=== PATIENT | female | born 1985 | race Caucasian/White ===

== ENCOUNTER 2017-04-24 22:44 | Emergency (ER) | payer OTHER ==
[2017-04-24] MEDS ORDERED: Lidocaine 1% PF 5 ML VIAL ONE (22:56)
[2017-04-24] MEDS ORDERED: Lidocaine 1% w/Epinephrine 1:100K 20 ML VIAL ONE (23:00)
[2017-04-24] MEDS ORDERED: Bacitracin Zinc 1 Packet ONE (23:39)
== END 2017-04-24 23:46 | disposition home or self-care (01) ==
LOC: SCSER 22:44
DX: S01.81XA Laceration without foreign body of other part of head, initial encounter (principal); S63.601A Unspecified sprain of right thumb, initial encounter; G43.909 Migraine, unspecified, not intractable, without status migrainosus; F41.9 Anxiety disorder, unspecified; V49.50XA Passenger injured in collision with unspecified motor vehicles in traffic accident, initial encounter
CPT/HCPCS: 12011; J2001

== ENCOUNTER 2018-01-19 15:52 | Emergency (ER) | payer MEDICAID, OTHER ==
[2018-01-19 16:31] LABS: #Monocytes 0.7 thou/uL (0.11-0.59); #Neutrophils 3.6 thou/uL (1.40-6.50); %Eosinophils 0.6 % (0.0-10.0); %Monocytes 13.5 % (0.0-10.0); %Neutrophils 67.9 % (42.0-75.0); Hemoglobin 12.3 g/dL (12.0-16.0); Mean Corpuscular HGB CONC 32.7 g/dL (32.0-36.0); Mean Corpuscular Hemoglobin 29.5 pg (27.0-31.0); Mean Corpuscular Volume 90.4 fL (78.0-98.0); Mean Platelet Volume 8.5 fL (7.4-10.4); Platelet Count 179 thou/uL (130-400); RBC Distribution Width 11.3 % (11.5-14.5); Red Blood Cell (RBC) Count 4.18 mill/uL (4.20-5.40); White Blood Cell (WBC) Count 5.3 thou/uL (4.8-10.8)
[2018-01-19 16:34] LABS: Bilirubin Small (Negative); Blood, Urine Negative (Negative); Clarity CLEAR (Clear); Glucose, Urine (Dipstick) Negative (Negative); Leukocyte Negative (Negative); Nitrite Negative (Negative); Protein, Urine (Dipstick) Negative (Neg-Trace); Specific Gravity, Urine 1.037 (1.002-1.036); Urobilinogen 0.2 mg/dL (0.2-1.0); pH, Urine 5.5 (5.0-9.0)
[2018-01-19 16:53] LABS: ALT (SGPT) 7 U/L (8-55); AST (SGOT) 12 U/L (5-34); Albumin 4.4 g/dL (3.5-5.0); Alkaline Phosphatase 74 U/L (40-150); Anion Gap 15 mmol/L (10-20); BUN (Urea Nitrogen) 11 mg/dL (7.0-18.7); Bilirubin, Total 0.5 mg/dL (0.2-1.2); Calc. Creatinine Clearance 0 mL/min (70-130); Calcium 9.5 mg/dL (7.8-10.44); Carbon Dioxide 21 mmol/L (22-29); Chloride 103 mmol/L (98-107); Estimated GFR-MDRD Greater than 90; Globulin 3.6 g/dL (2.4-3.5); Glucose 87 mg/dL (70-105); Lipase 12 U/L (8-78); Potassium 3.6 mmol/L (3.5-5.1); Sodium 135 mmol/L (136-145)
[2018-01-19 16:55] LABS: BHCG - Serum POSITIVE (NEGATIVE); Pregs Control Background? CLEAR/WHITE (CLR/WHITE); Pregs Control Bar Appear? YES (CONTROL BAR)
[2018-01-19] MEDS ORDERED: Ondansetron PF 4 MG/2 ML Vial ONE (18:38)
== END 2018-01-19 20:22 | disposition home or self-care (01) ==
LOC: ERS 15:52
DX: O21.9 Vomiting of pregnancy, unspecified (principal); O99.351 Diseases of the nervous system complicating pregnancy, first trimester; G43.909 Migraine, unspecified, not intractable, without status migrainosus; O99.341 Other mental disorders complicating pregnancy, first trimester; F41.9 Anxiety disorder, unspecified; Z3A.01 Less than 8 weeks gestation of pregnancy
CPT/HCPCS: 80053; 81003; 83690; 84702; 84703; 85025; 96361; 96374; J2405

== ENCOUNTER 2018-06-30 15:54 | Day surgery (SDC) | payer BC, OTHER ==
[2018-06-30 16:43] VITALS: BMI 22.9
--- NOTE | 2018-06-30 18:33 | HP ---
PRIMARY OB: Dr. Marx. CHIEF COMPLAINT: Vaginal bleeding. HISTORY OF PRESENT ILLNESS: The patient is a 32-year-old G4, P3, female with an intrauterine at 29 weeks and 5 days, who is presenting to Labor and Delivery today after speaking with her PUMP STATION OPERATOR for concerns of vaginal bleeding that occurred on 2 separate occasions. The patient reports that she has had bleeding on the toilet paper when wiping after going to the bathroom twice today. The patient denies any bleeding on the pad or on her panties. She does report intercourse last night. She reports that she was recently seen by Dr. Marx, where she was evaluated for urinary tract infection and vaginal infection, was noted to have a yeast infection, and is on Diflucan. The patient denies any recent illness, fever, fall, headache, chest pain, or shortness of breath. The patient does have some nausea and rare episodes of vomiting associated with . She denies any diarrhea or constipation. She denies any skin rashes, hip problems, knee problems, or muscle weakness. She denies any change in her discharge other than this bleeding from her HPI. She denies any urinary urgency or frequency. The patient denies uterine contractions or back pains. PAST MEDICAL HISTORY: Negative. PAST SURGICAL HISTORY: She has had surgery on her wrist, on her breast and has had her gallbladder removed. ALLERGIES: MORPHINE. MEDICATIONS: vitamins. SOCIAL HISTORY: Denies drug, alcohol, or tobacco use. OB LABS: Unavailable at time of dictation. REVIEW OF SYSTEMS: Per HPI. PHYSICAL EXAMINATION: VITAL SIGNS: Blood pressure is 102/64, heart rate of 94, saturating 100% on room air, temperature 98.2, and respiratory rate 18. GENERAL: She appears to be in no acute distress. She is alert, oriented, cooperative, and pleasant to interact with. HEAD: Normocephalic and atraumatic. LUNGS: Clear to auscultation bilaterally. HEART: Regular rate and rhythm. ABDOMEN: Gravid, soft, nontender to palpation. EXTREMITIES: Nontender, nonedematous. GENITOURINARY: Vulva is without masses, lesions, or erythema. Vestibular region and periurethral region are without lacerations, erythema, or other lesions. On vaginal exam, the patient does have some white discharge present, otherwise appears normal. There is no bleeding or change in her discharge color. Cervix is visibly closed. On digital exam, cervix is long and is fingertip. heart tracing for vaginal bleeding was performed, baseline is noted to be in the 130s with moderate long-term variability, positive 15 x 15 accelerations, no decelerations. The tocometer is not showing any contractions. ASSESSMENT AND PLAN: The patient is a 32-year-old G4, P3, female with an intrauterine at 29 weeks and 5 days, presents for vaginal spotting after having intercourse. There is no evidence of bleeding at the time of exam. No evidence of any concern at this time. The patient recently was evaluated for vaginal infection and urinary tract infection and has taken Diflucan for recently diagnosed yeast infection. The patient has been given reassurance. Fetus has reactive NST and category 1 tracing. She has been discharged home with labor precautions and instructions to contact her primary OB should her bleeding persist more than just some spotting for the next day or so. The patient has a followup appointment with her OB in approximately 1 week, which she has been encouraged to keep. Job ID: [id number]
== END 2018-06-30 17:47 | disposition home or self-care (01) ==
LOC: L&D/OP 15:54
PROVIDERS: ATTEND Obstetrics & Gynecology
DX: O99.89 Other specified diseases and conditions complicating pregnancy, childbirth and the puerperium (principal); N89.8 Other specified noninflammatory disorders of vagina; O98.819 Other maternal infectious and parasitic diseases complicating pregnancy, unspecified trimester; B37.9 Candidiasis, unspecified; Z3A.29 29 weeks gestation of pregnancy; Z88.5 Allergy status to narcotic agent
CPT/HCPCS: 59025; 99283

== ENCOUNTER 2018-07-19 08:24 | Day surgery (SDC) | payer BC, OTHER ==
[2018-07-19 09:06] VITALS: BMI 24.1
[2018-07-19] MEDS ORDERED: Ondansetron PF 4 MG/2 ML Vial IVP PRN (09:50)
[2018-07-19] MEDS ORDERED: Lactated Ringer's 1,000 ML IV SCH ×2 (10:00)
[2018-07-19 10:06] LABS: #Eosinphils 0.1 thou/uL (0.0-0.7); #Lymphocytes 2.1 thou/uL (1.20-3.40); #Monocytes 0.9 thou/uL (0.11-0.59); #Neutrophils 10.3 thou/uL (1.40-6.50); %Basophils 0.3 % (0.0-1.0); %Eosinophils 0.6 % (0.0-10.0); %Lymphocytes 15.4 % (21.0-51.0); %Monocytes 6.5 % (0.0-10.0); %Neutrophils 77.3 % (42.0-75.0); Hemoglobin 9.1 g/dL (12.0-16.0); Mean Corpuscular HGB CONC 33.6 g/dL (32.0-36.0); Mean Corpuscular Hemoglobin 30.7 pg (27.0-31.0); Mean Corpuscular Volume 91.4 fL (78.0-98.0); Platelet Count 185 thou/uL (130-400); RBC Distribution Width 11.4 % (11.5-14.5); Red Blood Cell (RBC) Count 2.95 mill/uL (4.20-5.40); White Blood Cell (WBC) Count 13.4 thou/uL (4.8-10.8)
[2018-07-19 10:27] LABS: ALT (SGPT) 13 U/L (8-55); AST (SGOT) 16 U/L (5-34); Albumin 3.2 g/dL (3.5-5.0); Alkaline Phosphatase 141 U/L (40-150); Anion Gap 11 mmol/L (10-20); BUN (Urea Nitrogen) 6 mg/dL (7.0-18.7); Bilirubin, Total 0.4 mg/dL (0.2-1.2); Calc. Creatinine Clearance 133 mL/min (70-130); Calcium 8.9 mg/dL (7.8-10.44); Carbon Dioxide 23 mmol/L (22-29); Chloride 106 mmol/L (98-107); Estimated GFR-MDRD Greater than 90; Globulin 2.9 g/dL (2.4-3.5); Glucose 104 mg/dL (70-105); Potassium 3.6 mmol/L (3.5-5.1); Protein, Total 6.1 g/dL (6.0-8.3); Sodium 136 mmol/L (136-145)
[2018-07-19 10:36] LABS: Bilirubin Small (Negative); Blood, Urine Negative (Negative); Clarity CLOUDY (Clear); Glucose, Urine (Dipstick) Negative (Negative); Leukocyte Negative (Negative); Nitrite Negative (Negative); Protein, Urine (Dipstick) Trace mg/dL (Neg-Trace); Specific Gravity, Urine 1.031 (1.002-1.036)
--- NOTE | 2018-07-20 02:43 | SS ---
DATE OF ADMISSION: 07/19/2018 DATE OF DISCHARGE: 07/19/2018 REGULAR PHYSICIAN: Taylor Marx DO. EVALUATING PHYSICIAN: Rishi Karimi MD CHIEF COMPLAINT: Nausea and vomiting at home since last p.m. HISTORY OF PRESENT ILLNESS: Ms. Nieto is a 32-year-old white G4, P3, with an estimated date of confinement of 09/10/2018, who presents complaining of nausea and vomiting with multiple episodes of emesis since 9:00 pm last night. She states that she has not been able to tolerate anything by mouth since 7:00 pm yesterday. She denies vaginal bleeding, ruptured membranes, or contractions. Her care has been with Dr. Marx without complications. PAST OBSTETRICAL HISTORY: Three vaginal deliveries, one of which was at 36 weeks. PAST MEDICAL HISTORY: None. PAST SURGICAL HISTORY: Surgery to her hand, cholecystectomy, and breast augmentation. CURRENT MEDICATIONS: vitamins and weekly Gananda. SOCIAL HISTORY: She denies tobacco, alcohol, or drug use. FAMILY HISTORY: Unremarkable. REVIEW OF SYSTEMS: Positive for nausea and vomiting. Denies ruptured membranes, vaginal bleeding, fever, or chills. PHYSICAL EXAMINATION: VITAL SIGNS: In triage, blood pressure 100/64, pulse is 94. She is afebrile and she is 99% saturated on room air. GENERAL: She is pleasant and not significantly ill appearing. ABDOMEN: Soft, nontender, and gravid. PELVIC: Deferred. heart rate tracing is stable with no decelerations. No uterine contractions are seen. LABORATORY DATA: White count 13.4, hemoglobin and hematocrit 9.1/27.0, platelet count 185,000. Chemistry; sodium 136, potassium 3.6, BUN 6, creatinine 0.64. Total bilirubin is 0.4, AST 16, ALT 13, alkaline phosphatase is 141. Urine shows a specific gravity of 1.031 with trace protein, trace ketones, and small bilirubin, negative for leukocyte esterase. The patient is given 1 L of IV fluid and feels much better. ASSESSMENT: 1. 32-week intrauterine . 2. Nausea, vomiting, ketonuria, improved after IV fluid in triage. 3. No evidence of labor. PLAN: The patient will be dismissed to home. She was told to keep herself well hydrated with Gatorade over the next 12-24 hours and then slowly advance her diet to a BRAT diet. She was also given a prescription for Zofran 4 mg one p.o. q.6 hours, #15. She voiced understanding of her discharge instructions and was sent home in good condition. Dr. Marx has been notified. Job ID: [id number]
== END 2018-07-19 12:01 | disposition home or self-care (01) ==
LOC: L&D/OP 08:24
PROVIDERS: ATTEND Obstetrics & Gynecology
DX: O21.2 Late vomiting of pregnancy (principal); Z3A.32 32 weeks gestation of pregnancy; Z79.899 Other long term (current) drug therapy; Z88.5 Allergy status to narcotic agent; Z91.013 Allergy to seafood; Z91.018 Allergy to other foods
CPT/HCPCS: 36415; 80053; 81003; 85025; 96360; 96361; 96375; 99283; J2405

== ENCOUNTER 2018-08-07 08:01 | Day surgery (SDC) | payer BC, OTHER ==
[2018-08-07 08:53] VITALS: BMI 23.4
[2018-08-07 09:36] LABS: Bilirubin Negative (Negative); Blood, Urine Negative (Negative); Clarity CLEAR (Clear); Glucose, Urine (Dipstick) Negative (Negative); Leukocyte Negative (Negative); Nitrite Negative (Negative); Protein, Urine (Dipstick) Negative (Neg-Trace)
--- NOTE | 2018-08-07 23:50 | SS ---
DATE OF ADMISSION: 08/07/2018 DATE OF DISCHARGE: 08/07/2018 REGULAR PHYSICIAN: Taylor Marx DO. EVALUATING PHYSICIAN: Rishi Karimi MD CHIEF COMPLAINT: Lower abdominal discomfort since midnight. HISTORY OF PRESENT ILLNESS: Ms. Nieto is a 32-year-old white G4, P3-0-0-3 with an estimated date of confinement of 09/10/2018, who presents complaining of lower abdominal discomfort with pressure since midnight last night. She denies ruptured membranes or vaginal bleeding. She states she has been neto irregularly. Her care has been with Dr. Marx and has been without significant complications. She states she took her last Marcelline shot 2 weeks ago. PAST OBSTETRICAL HISTORY: One vaginal delivery at 36 weeks, which was her last and she had had 2 previous term deliveries. PAST MEDICAL HISTORY: None. PAST SURGICAL HISTORY: Surgery to her wrist, removal of wisdom teeth, breast augmentation, and cholecystectomy. CURRENT MEDICATIONS: vitamins. ALLERGIES: MORPHINE, SHELLFISH, MUSHROOMS. SOCIAL HISTORY: Unremarkable. FAMILY HISTORY: Unremarkable. REVIEW OF SYSTEMS: She denies nausea, vomiting, fever, chills, ruptured membranes, or vaginal bleeding. PHYSICAL EXAMINATION: VITAL SIGNS: Stable in triage. She is afebrile. GENERAL: She is in no acute distress. ABDOMEN: Soft, nontender, and gravid. There is no guarding or rebound. PELVIC: Examination by Labor nurse shows the cervix to be 1 cm dilated, 50% effaced, posterior with the vertex presenting. heart rate tracing is stable with spontaneous accelerations. Only an occasional uterine contraction is seen. LABORATORY STUDIES: Urinalysis returned showing a specific gravity of 1.018 with trace ketones, negative for leukocyte esterase or nitrites. ASSESSMENT: 1. 35-week intrauterine . 2. No evidence of labor. PLAN: The patient will be dismissed to home. The patient was told to increase her hydration at home and eat small frequent meals. Labor precautions were reviewed with her in detail. Dr. Marx was notified. Job ID: [id number]
== END 2018-08-07 10:21 | disposition home health service (06) ==
LOC: L&D/OP 08:01
PROVIDERS: ATTEND Obstetrics & Gynecology
DX: O47.03 False labor before 37 completed weeks of gestation, third trimester (principal); Z90.49 Acquired absence of other specified parts of digestive tract; Z98.890 Other specified postprocedural states; Z88.5 Allergy status to narcotic agent; Z91.013 Allergy to seafood; Z91.018 Allergy to other foods; Z3A.35 35 weeks gestation of pregnancy
CPT/HCPCS: 81003; 99282

== ENCOUNTER 2018-08-15 12:27 | Day surgery (SDC) | payer BC, OTHER ==
[2018-08-15 13:28] VITALS: BP 113/67; TEMP 98.5; BMI 23.9
[2018-08-15] MEDS ORDERED: Betamet Acet/Betamet Na Ph 30 MG/5 ML VIAL IM SCH (16:00)
[2018-08-15] MEDS ORDERED: Lactated Ringer's 1,000 ML IV SCH (16:45)
--- NOTE | 2018-08-15 17:16 | PDOC.LDPN ---
Labor & Delivery Progress Note - Subjective Subjective: other (Pt presents with c/o ctx every 5-10 min. Denies LOF/VB. Good FM. No other concerns. Reports moderate discomfort with ctx. ) - Objective Vital signs reviewed and normal: yes General: NAD Uterine fundus: non tender Dilation: 3 Effacement: 75% Station: -1 FHT: category 1 [place] contractions every: q5-10+ min, irregular - Assessment (1) 36 weeks gestation of Code(s): Z3A.36 - 36 WEEKS GESTATION OF Status: Acute (2) contractions Code(s): O47.9 - FALSE LABOR, UNSPECIFIED Status: Acute -: SVE unchanged after observation and IVF bolus. Due to no cervical change recommended d/c home with completion of BMTZ course as outpatient. Recommended pelvic rest. Scheduled tomorrow for BMTZ. PTL warnings reviewed.
== END 2018-08-15 16:35 | disposition home or self-care (01) ==
LOC: L&D/OP 12:27
PROVIDERS: ATTEND Obstetrics & Gynecology
DX: O47.03 False labor before 37 completed weeks of gestation, third trimester (principal); Z3A.36 36 weeks gestation of pregnancy; Z88.5 Allergy status to narcotic agent; Z91.018 Allergy to other foods; Z91.013 Allergy to seafood
CPT/HCPCS: 96360; 96372; 99283; J0702

== ENCOUNTER 2018-08-16 05:07 | Inpatient (IN) | payer BC, OTHER ==
[2018-08-16 05:38] VITALS: BMI 23.9
--- NOTE | 2018-08-16 05:50 | PDOC.LDHP ---
Labor and Delivery H&P HPI: Patient of Dr Mendosa Here yesterday and evaluared by Dr Marx, given Celestone yesterday with second injection this pm at 1700 HPI: 30 uo at 36 weeks with 3cm dilation as of yesterday, with persistent CTX every 5 min. No LOF, no VB, good FM. Review of Systems: complete ROS completed and as per HPI Current gestational age (weeks): 36 Dating criteria: last menstrual period Grav: 4 Para: 3 OB History Details: All Current complications: none Abnormal US findings: No Past Medical History: HX migraines Current medications: pre- vitamins Previous surgical history: cholecystectomy, other (breast augmentation) Allergies/Adverse Reactions: Allergies Allergy/AdvReac Type Severity Reaction Status Date / Time mushroom Allergy Severe Anaphylaxis Verified 08/15/18 13:29 morphine Allergy Intermediate Headache Verified 08/15/18 13:29 shellfish derived Allergy Intermediate Hives Verified 08/15/18 13:29 - Physical Exam Vital signs reviewed and normal: yes General: NAD Heart: RRR Lungs: CTAB Abdomen: gravid Extremeties: no edema FHT: category 1 [place] contractions every: irregular, Q5 or so - Vaginal Exam cm dilated: 3 Effacement: 50% Station: -1 - Assessment Threatened PTL at 36 weeks, recieved BMZ yesterday x 1 (has another this PM) - Plan Plan: observation in L&D (No CX change as of yet...still 3cm. We will obs for 2 hrs)
[2018-08-16] MEDS ORDERED: Butorphanol Tartrate 1 MG/ML VIAL IM PRN (05:53)
[2018-08-16] MEDS ORDERED: hydrALAZINE 20 MG/ML VIAL SLOW IVP PRN ×2 (05:53→07:45)
[2018-08-16] MEDS ORDERED: Promethazine HCl 25 MG/ML VIAL IM/IV PRN (05:54)
--- NOTE | 2018-08-16 07:44 | PDOC.EVN ---
Event Note - Event Note Event Note: CX now 4cm...reg CTX...will admit. GBS negatve. Notified Dr singh
[2018-08-16] MEDS ORDERED: Promethazine HCl 25 MG/ML VIAL IM PRN (07:45)
[2018-08-16] MEDS ORDERED: HYDROcodone/Acetaminophen 5/325 mg Tablet PO PRN ×2 (07:45)
[2018-08-16] MEDS ORDERED: Lidocaine 1% (PF) 30 ML VIAL SC PRN (07:45)
[2018-08-16] MEDS ORDERED: Ibuprofen 800 MG TAB PO PRN (07:45)
[2018-08-16] MEDS ORDERED: Ondansetron PF 4 MG/2 ML Vial IVP PRN (07:45)
[2018-08-16] MEDS: Lactated Ringer's 1,000 ML IV SCH ×2 (08:20→12:24)
[2018-08-16 09:07] LABS: Syphilis Antibody Nonreactive (Nonreactive); Syphilis Antibody Index 0.07 S/CO (<1.00 Non-Reactive)
[2018-08-16 09:08] LABS: HBSAg Index 0.25 S/CO (0-0.99); HIV (1/2) Antibody/Antigen Non-Reactive (NonReactive); HIV 1/2 INDEX 0.11 S/CO (<1.00); Hep B Surf Ag Non-Reactive S/CO (NonReactive)
[2018-08-16 09:21] LABS: Hemoglobin 10.1 g/dL (12.0-16.0); Mean Corpuscular HGB CONC 32.2 g/dL (32.0-36.0); Mean Corpuscular Hemoglobin 28.7 pg (27.0-31.0); Mean Corpuscular Volume 89.3 fL (78.0-98.0); Mean Platelet Volume 9.8 fL (7.4-10.4); Platelet Count 247 thou/uL (130-400); Red Blood Cell (RBC) Count 3.53 mill/uL (4.20-5.40); White Blood Cell (WBC) Count 27.3 thou/uL (4.8-10.8)
[2018-08-16] MEDS ORDERED: Butorphanol Tartrate 1 MG/ML VIAL SLOW IVP PRN (09:31)
[2018-08-16] MEDS: Betamet Acet/Betamet Na Ph 30 MG/5 ML VIAL IM SCH (16:58)
--- NOTE | 2018-08-17 08:27 | PDOC.LDPN ---
Labor & Delivery Progress Note - Subjective Subjective: other (Feels some ctx, no pain btw ctx. No f/c, VB or other concerns. + FM. ) - Objective Vital signs reviewed and normal: yes General: NAD Uterine fundus: non tender SVE: 4 Effacement: 75% Station: -2 FHT: category 2 (140s, mod vivian, +accels, 2 late decels noted this AM after ctx with resolution. ) [employer] contractions every: irregular Resuscitative measures: maternal IV fluids, maternal position change - Assessment (1) 36 weeks gestation of Code(s): Z3A.36 - 36 WEEKS GESTATION OF Current Visit: No Status: Acute (2) contractions Code(s): O47.9 - FALSE LABOR, UNSPECIFIED Current Visit: No Status: Acute -: Reviewed FHTs with pt. BPP ordered. Pt denies any sx of chorio, CBC repeated this AM due to leukocytosis noted yesterday. Continue EFW. Determine remainder of plan pending evaluations listed above. S/P BMTZ.
[2018-08-17 09:26] LABS: Hemoglobin 8.3 g/dL (12.0-16.0); Mean Corpuscular HGB CONC 31.8 g/dL (32.0-36.0); Mean Corpuscular Hemoglobin 28.2 pg (27.0-31.0); Mean Corpuscular Volume 88.7 fL (78.0-98.0); Mean Platelet Volume 9.7 fL (7.4-10.4); Platelet Count 228 thou/uL (130-400); RBC Distribution Width 11.9 % (11.5-14.5); Red Blood Cell (RBC) Count 2.93 mill/uL (4.20-5.40); White Blood Cell (WBC) Count 23.9 thou/uL (4.8-10.8)
[2018-08-17] MEDS: Lactated Ringer's 1,000 ML IV SCH ×3 (10:23→15:58)
[2018-08-17 10:28] LABS: Band 5 % (5-11); Lymphocytes 11 % (21-51); MDiff Complete? YES; Metamyelocyte 1 % (0-0); Monocytes 7 % (0-10); Neutrophil 76 % (42-75); Platelet Morphology Comment Appears Adequate; Polychromasia SLIGHT = 2-3 cells (100X) (0-2/hpf)
--- NOTE | 2018-08-17 11:26 | ULT ---
ULTRASOUND BIOPHYSICAL PROFILE: DATE: 08/17/18 HISTORY: 32-year-old female in third trimester of with decelerations. FINDINGS: breathin tone: 2 movement: 2 Amniotic fluid volume: 2 From heart rate of 135 bpm, there is deceleration during uterine contraction to a rate of 116 b pm. It recovers after the contraction back to 135 bpm. BLAKE: 5.5 cm. Maternal cervix: 3.5 cm in length and closed. Placenta: Fundal and left lateral. No placenta previa. lie: Vertex. Bladder, diaphragm, bilateral kidneys, 3 vessel cord, and stomach visualized. The rest of the anatomy is not well visualized. IMPRESSION: 1. Biophysical profile score of 6/8 (no breathing motion), excluding the non-stress test. 2. deceleration during maternal uterine contraction. 3. Oligohydramnios. APOLONIA [place] POS: [facility]
--- NOTE | 2018-08-17 12:44 | PDOC.LDPN ---
Labor & Delivery Progress Note - Subjective Subjective: other (Feels some ctx. Still no LOF. + FM. ) - Objective Vital signs reviewed and normal: yes General: NAD Uterine fundus: non tender Dilation: 4 Effacement: 75% Station: -2 FHT: category 2 (140s, mod vivian, +accels, occasional prolonged and late decel ) AROM: clear fluid IUPC placed: yes FSE placed: yes Resuscitative measures: maternal oxygen, maternal IV fluids, maternal position change - Assessment (1) 36 weeks gestation of Code(s): Z3A.36 - 36 WEEKS GESTATION OF Current Visit: No Status: Acute (2) contractions Code(s): O47.9 - FALSE LABOR, UNSPECIFIED Current Visit: No Status: Acute (3) Oligohydramnios Code(s): O41.00X0 - OLIGOHYDRAMNIOS, UNSP TRIMESTER, NOT APPLICABLE OR UNSP Current Visit: Yes Status: Acute -: Reviewed BPP with pt. Due to BLAKE and BPP 6/10, recommended delivery. AROM with internals placed. May require pitocin if ctx do not increase with AROM. s/p BMTZ course.
[2018-08-17] MEDS ORDERED: Fentanyl 4 mcg/Bup 0.1% Cadd 100 ML ONE (13:38)
[2018-08-17] MEDS ORDERED: Naloxone HCl 0.4 mg/ml Vial IVP PRN ×2 (14:13)
[2018-08-17] MEDS ORDERED: Promethazine HCl 25 MG/ML VIAL IM PRN (14:13)
[2018-08-17] MEDS ORDERED: diphenhydrAMINE 50 MG/ML VIAL IVP PRN (14:13)
[2018-08-17] MEDS ORDERED: Acetaminophen 325 MG TAB PO PRN (14:13)
[2018-08-17] MEDS ORDERED: Lactated Ringer's 500 ML IV PRN (14:13)
[2018-08-17] MEDS ORDERED: Ondansetron PF 4 MG/2 ML Vial IVP PRN (14:13)
[2018-08-17] MEDS ORDERED: ePHEDrine/0.9% NaCl/PF SYRINGE 50 mg/10 ml SLOW IVP PRN (14:13)
[2018-08-17] MEDS ORDERED: Fentanyl 4 mcg/Bupivacaine 0.1% Cassette 100 ML EPIDURAL SCH (14:15)
[2018-08-17] MEDS ORDERED: Communication Order-Pharmacy FS SCH (14:15)
[2018-08-17] MEDS ORDERED: NS w/ Oxytocin 10 units 500 ML IV SCH (14:45)
[2018-08-17] MEDS: NS / Oxytocin 40 units/1000ml 1,000 ML IV PRN ×2 (17:00→18:40)
--- NOTE | 2018-08-17 17:32 | PDOC.OPDEL ---
OB Operative/Delivery Note Delivery Dr/Surgeon: Taylor Marx DO Pre-Delivery Diagnosis: medically indicated induction Procedure/Post Delivery Dx: spontaneous vaginal delivery Weeks gestation: 36 Anesthesia: epidural - Findings A Sex: male - 1 min: 9 - 5 min: 9 - Additional Findings/Plan Placenta delivered: spontaneous Repaired Obstetrical Laceration: none Estimated blood loss: QBL 40 cc Compilations/Other Findings: in cephalic presentation Normal appearing placenta Post delivery plan: routine recovery
[2018-08-17] MEDS ORDERED: NS / Oxytocin 40 units/1000ml 1,000 ML IV SCH (21:16)
[2018-08-17] MEDS ORDERED: Preparation H Ointment 28 GM TUBE PR PRN (21:16)
[2018-08-17] MEDS ORDERED: Benzocaine-Menthol 82.5 ML CAN TOP PRN (21:16)
[2018-08-17] MEDS ORDERED: Methylergonovine 0.2 MG/ML VIAL IM PRN (21:16)
[2018-08-17] MEDS ORDERED: Milk Of Magnesia 30 ML UDCUP PO PRN (21:16)
[2018-08-17] MEDS ORDERED: diphenhydrAMINE 25 MG CAP PO PRN (21:16)
[2018-08-17] MEDS ORDERED: Bisacodyl 10 MG SUPP PR PRN (21:16)
[2018-08-17] MEDS ORDERED: hydrALAZINE 20 MG/ML VIAL SLOW IVP PRN (21:16)
[2018-08-17] MEDS ORDERED: Misoprostol 200 MCG TAB VAG PRN (21:16)
[2018-08-17] MEDS: Ibuprofen 800 MG TAB PO SCH (21:31)
[2018-08-18] MEDS: Betamet Acet/Betamet Na Ph 30 MG/5 ML VIAL IM SCH (01:38)
[2018-08-18] MEDS: HYDROcodone/Acetaminophen 5/325 mg Tablet PO PRN (02:06)
[2018-08-18] MEDS: Ibuprofen 800 MG TAB PO SCH ×3 (05:59→21:42)
[2018-08-18 06:35] LABS: Hemoglobin 7.8 g/dL (12.0-16.0)
--- NOTE | 2018-08-18 08:33 | PDOC.PP ---
Post Progress Note Post Day #: 1 Subjective: No concerns. Breast and formula feeding. Minimal pain and lochia. PO intake tolerated: yes Flatus: yes Ambulation: yes Vital Signs (12 hours) Temp Pulse Resp BP Pulse Ox 08/18/18 08:07 98.6 F 79 20 108/70 97 08/18/18 04:39 98.6 F 84 20 100/55 L 08/17/18 23:53 97.9 F 85 20 115/67 08/17/18 21:16 93 20 108/70 Weight Weight 144 lb - Physical Examination General: NAD Cardiovascular: RRR Respiratory: non-labored breathing Abdominal: no distention, appropriately TTP Fundus firm & at: below umbilicus Extremities: negative homans (B) Neurological: no gross focal deficits Psychiatric: A&Ox3, normal affect Result Diagrams: 08/18/18 06:23 Additional Labs: Post Labs Blood Type O POSITIVE 08/16/18 08:13 Hep Bs Antigen Non-Reactive S/CO (NonReactive) 08/16/18 08:13 (1) 36 weeks gestation of Code(s): Z3A.36 - 36 WEEKS GESTATION OF Status: Resolved (2) contractions Code(s): O47.9 - FALSE LABOR, UNSPECIFIED Status: Resolved (3) Oligohydramnios Code(s): O41.00X0 - OLIGOHYDRAMNIOS, UNSP TRIMESTER, NOT APPLICABLE OR UNSP Status: Resolved (4) Vaginal delivery Code(s): O80 - ENCOUNTER FOR FULL-TERM UNCOMPLICATED DELIVERY Status: Acute (5) Anemia Code(s): D64.9 - ANEMIA, UNSPECIFIED Status: Acute - Assessment/Plan PPD1 VSSAF Continue PP care Iron supplement. Plan for d/c tomorrow due to infant 36 weeks
[2018-08-18] MEDS: Ferrous Sulfate 325 MG TAB PO SCH ×2 (09:05→18:10)
[2018-08-18] MEDS: Docusate Calcium (SURFAK) 240 MG CAP PO SCH ×2 (09:06→21:42)
[2018-08-18] MEDS: Prenatal Vitamin 1 TAB PO SCH (09:06)
[2018-08-18] MEDS ORDERED: Bupivacaine 0.25% HCL 30 ML VIAL ONE (11:11)
[2018-08-19] MEDS: HYDROcodone/Acetaminophen 5/325 mg Tablet PO PRN (02:32)
[2018-08-19] MEDS: Ibuprofen 800 MG TAB PO SCH ×2 (06:52→13:58)
[2018-08-19 08:20] VITALS: BP 103/65; TEMP 98.6
--- NOTE | 2018-08-19 08:31 | PDOC.PP ---
Post Progress Note Post Day #: 2 Subjective: Minimal pelvic pain and lochia. Voiding. Pt c/o bilateral back spasms that started last night. Denies any dysuria or other concerns. PO intake tolerated: yes Flatus: yes Ambulation: yes Vital Signs (12 hours) Temp Pulse Resp BP Pulse Ox 08/19/18 08:00 98.6 F 61 13 103/65 95 Weight Weight 144 lb - Physical Examination General: NAD Cardiovascular: RRR Respiratory: non-labored breathing Deviation from normal: Infant resting on abdomen, did not perform exam. Pt MA- reports uterus low Extremities: negative homans (B) Neurological: no gross focal deficits Psychiatric: A&Ox3, normal affect Result Diagrams: 08/18/18 06:23 Additional Labs: Post Labs Blood Type O POSITIVE 08/16/18 08:13 Hep Bs Antigen Non-Reactive S/CO (NonReactive) 08/16/18 08:13 (1) Oligohydramnios Code(s): O41.00X0 - OLIGOHYDRAMNIOS, UNSP TRIMESTER, NOT APPLICABLE OR UNSP Status: Resolved (2) Vaginal delivery Code(s): O80 - ENCOUNTER FOR FULL-TERM UNCOMPLICATED DELIVERY Status: Acute (3) Anemia Code(s): D64.9 - ANEMIA, UNSPECIFIED Status: Acute - Assessment/Plan PPD2 VSSAF Heating pad for back spasm. Plan for d/c home today with .
[2018-08-19] MEDS: Ferrous Sulfate 325 MG TAB PO SCH ×2 (09:14→17:29)
[2018-08-19] MEDS: Prenatal Vitamin 1 TAB PO SCH (09:14)
[2018-08-19] MEDS: Docusate Calcium (SURFAK) 240 MG CAP PO SCH (09:14)
== END 2018-08-19 19:25 | disposition home or self-care (01) | DRG 806 ==
LOC: L&D/OP 05:07 → L&D 08:25 → 3SW 08-17 19:27
PROVIDERS: ADMIT Obstetrics & Gynecology; ATTEND Obstetrics & Gynecology
PROC: 10E0XZZ Delivery of Products of Conception, External Approach (ICD-10-PCS; principal; 2018-08-17)
DX: O60.14X0 Preterm labor third trimester with preterm delivery third trimester, not applicable or unspecified (principal); O41.03X0 Oligohydramnios, third trimester, not applicable or unspecified; Z37.0 Single live birth; Z3A.36 36 weeks gestation of pregnancy; O76 Abnormality in fetal heart rate and rhythm complicating labor and delivery; O99.02 Anemia complicating childbirth; D64.9 Anemia, unspecified
CPT/HCPCS: 36415; 51702; 76819; 85014; 85018; 85025; 85027; 86780; 86850; 86900; 86901; 87340; 87389; 99285; J0595; J2590; S0020

== ENCOUNTER 2021-08-03 08:10 | Emergency (ER) | payer BC, OTHER ==
[2021-08-03] MEDS ORDERED: Acetaminophen 500 MG TAB ONE (09:24)
== END 2021-08-03 10:14 | disposition home or self-care (01) ==
LOC: ERS 08:10
DX: O98.513 Other viral diseases complicating pregnancy, third trimester (principal); U07.1 COVID-19; Z3A.33 33 weeks gestation of pregnancy
CPT/HCPCS: 87804; 99283; U0003; U0005

== ENCOUNTER 2021-12-30 09:25 | Emergency (ER) | payer BC, OTHER ==
[2021-12-30] MEDS ORDERED: Ondansetron ODT 4 MG TAB ONE (10:54)
[2021-12-30] MEDS ORDERED: Ibuprofen 200 MG TAB ONE (10:54)
== END 2021-12-30 12:13 | disposition home or self-care (01) ==
LOC: ERS 09:25
DX: B34.9 Viral infection, unspecified (principal)
CPT/HCPCS: 87804; 99284; Q0162

== ENCOUNTER 2022-09-15 14:57 | Outpatient (CLI) | payer BC, OTHER | END 2022-09-15 14:58 | disposition home or self-care (01) | LOC: ULT 14:57 | PROVIDERS: ATTEND Family Medicine | DX: R79.89 Other specified abnormal findings of blood chemistry (principal); R93.89 Abnormal findings on diagnostic imaging of other specified body structures | CPT/HCPCS: 76536 ==

== ENCOUNTER 2023-02-19 10:27 | Outpatient (CLI) | payer BC | END 2023-02-19 10:28 | disposition home or self-care (01) | LOC: BICULT 10:27 | PROVIDERS: ATTEND Family Medicine | DX: R93.89 Abnormal findings on diagnostic imaging of other specified body structures (principal) | CPT/HCPCS: 76536 ==

== ENCOUNTER 2023-09-28 22:47 | Day surgery (SDC) | payer BC ==
[2023-09-29 01:44] LABS: #Basophils Less than 0.03 10x3/uL (0.0-0.2); #Eosinphils Less than 0.03 10x3/uL (0.0-0.7); %Basophils 0.2 % (0.0-1.0); %Monocytes 6.8 % (0.0-10.0); %Neutrophils 79.8 % (42.0-75.0); Hematocrit 28.7 % (36.0-47.0); Hemoglobin 9.5 g/dL (12.0-16.0); Mean Corpuscular HGB CONC 33.1 g/dL (32.0-36.0); Mean Corpuscular Hemoglobin 30.8 pg (27.0-31.0); Mean Corpuscular Volume 93.2 fL (78.0-98.0); Mean Platelet Volume 11.3 fL (7.4-10.4); Platelet Count 181 10x3/uL (130-400); RBC Distribution Width 12.6 % (11.5-14.5); Red Blood Cell (RBC) Count 3.08 mill/uL (4.20-5.40)
[2023-09-29] MEDS ORDERED: Ondansetron PF 4 MG/2 ML Vial ONE ×2 (02:01→05:15)
[2023-09-29] MEDS ORDERED: fentaNYL 50 mcg/mL 1 mL Vial ONE ×2 (02:02→03:57)
[2023-09-29 02:11] LABS: Anion Gap 11 mmol/L (10-20); BUN (Urea Nitrogen) 9 mg/dL (7.0-18.7); Calc. Creatinine Clearance 0 mL/min (70-130); Carbon Dioxide 23 mmol/L (22-29); Chloride 109 mmol/L (98-107); Potassium 4.1 mmol/L (3.5-5.1); Sodium 139 mmol/L (136-145)
[2023-09-29 02:12] LABS: ALT (SGPT) 19 U/L (8-55); AST (SGOT) 17 U/L (5-34); Albumin 3.5 g/dL (3.5-5.0); Alkaline Phosphatase 55 U/L (40-110); Bilirubin, Total 0.8 mg/dL (0.2-1.2); Calcium 8.5 mg/dL (7.8-10.44); Estimated GFR 111; Globulin 3.1 g/dL (2.4-3.5); Glucose 131 mg/dL (70-105); Protein, Total 6.6 g/dL (6.0-8.3)
[2023-09-29 02:16] LABS: Troponin I Less than 0.010 ng/mL (< 0.028)
[2023-09-29] MEDS ORDERED: PROPOFOL 20 ML ONE (05:08)
[2023-09-29] MEDS ORDERED: Midazolam HCl 2 mg/2 ml Vial ONE (05:08)
[2023-09-29] MEDS ORDERED: Rocuronium Bromide 10 MG/ML (10ML VIAL) ONE ×2 (05:08→05:15)
[2023-09-29] MEDS ORDERED: Fentanyl 250 MCG/5 ML VIAL ONE (05:08)
[2023-09-29] MEDS ORDERED: EPINEPHrine 1 MG/ML VIAL ONE (05:11)
[2023-09-29] MEDS ORDERED: Bupivacaine PF 0.5% 30 ML VIAL ONE (05:11)
[2023-09-29] MEDS ORDERED: Methylene Blue 50 MG/10 ML AMPUL ONE (05:11)
[2023-09-29] MEDS ORDERED: SUCCINYLCHOLINE/SOD CL,ISO/PF 200 MG/10 ML SYRINGE FS ONE (05:15)
[2023-09-29] MEDS ORDERED: Dexamethasone 4 mg/ml Vial ONE (05:15)
[2023-09-29] MEDS ORDERED: ePHEDrine Sulfate 50 MG/10 ML VIAL ONE (06:04)
[2023-09-29] MEDS ORDERED: SUGAMMADEX SODIUM 200 MG/2 ML VIAL ONE (06:16)
[2023-09-29] MEDS ORDERED: Promethazine HCl 25 MG/ML VIAL IM PRN (06:46)
[2023-09-29] MEDS ORDERED: Ondansetron PF 4 MG/2 ML Vial IVP PRN (06:46)
[2023-09-29] MEDS ORDERED: traMADol HCl 50 MG TAB PO PRN (06:46)
[2023-09-29] MEDS ORDERED: Sodium Chloride 0.9% 1,000 ML IV SCH (07:00)
[2023-09-29] MEDS ORDERED: Promethazine HCl 25 MG/ML VIAL ONE (08:18)
[2023-09-29] MEDS ORDERED: HYDROcodone/Acetaminophen 5/325 mg Tablet ONE (08:37)
[2023-09-29] MEDS ORDERED: Iopamidol-370 76% 500 ML MDV (1 ML CHARGE) ONE (08:57)
[2023-09-29] MEDS ORDERED: Ibuprofen 800 MG TAB PO SCH (14:00)
== END 2023-09-29 09:35 | disposition home or self-care (01) ==
LOC: ERS 22:47 → SDC 09-29 05:26
PROVIDERS: ATTEND Obstetrics & Gynecology
PROC: 0UC Female Reproductive System, Extirpation (ICD-10-PCS; principal; 2023-09-29)
DX: K66.1 Hemoperitoneum (principal); N99.820 Postprocedural hemorrhage of a genitourinary system organ or structure following a genitourinary system procedure; Z98.890 Other specified postprocedural states; Z90.49 Acquired absence of other specified parts of digestive tract
CPT/HCPCS: 36415; 71275; 74177; 80053; 83880; 84484; 85025; 86850; 86900; 86901; 93005; 96361; 96374; 96375; 96376; A4314; C1889; J0171; J0665; J1100; J2250; J2405; J2550; J2704; J3010; Q9967; Q9968

== ENCOUNTER 2024-02-15 13:37 | Outpatient (CLI) | payer BC | END 2024-02-15 13:38 | disposition home or self-care (01) | LOC: BICULT 13:37 | PROVIDERS: ATTEND Family Medicine | DX: R10.13 Epigastric pain (principal) | CPT/HCPCS: 76700 ==